=== PATIENT | female | born 1960 | race Caucasian/White ===

== ENCOUNTER 2021-07-12 10:20 | Emergency (ER) | payer OTHER ==
[~2021-07-12] VITALS: Ht 162.6 cm; Wt 61.2 kg
[2021-07-12] MEDS ORDERED: KEPPRA750 MG PO (10:33)
[2021-07-12 10:50] LABS: ABSOLUTE BASOPHILS 0.1 thou/uL (0.0-0.2); ABSOLUTE LYMPHOCYTES 1.4 thou/uL (0.8-5.3); ABSOLUTE MONOCYTES 0.5 thou/uL (0.0-1.2); ABSOLUTE NEUTROPHILS 3.1 thou/uL (1.6-8.1); BASOPHILS 1.1 %; EOSINOPHILS 0.8 %; HEMATOCRIT 40.5 % (37.0-47.0); HEMOGLOBIN 13.5 gm/dL (12.0-15.0); LYMPHOCYTES 27.4 %; MCH 29.4 pg (26.0-34.0); MCHC 33.4 g/dL (28.0-37.0); MCV 87.9 fL (80.0-100.0); MONOCYTES 9.7 %; MPV 8.7 fl. (7.2-11.1); NUCLEATED RBCS 0 /100WBC; PLATELET COUNT* 265 thou/uL (150-400); RBC 4.61 mil/uL (4.20-5.00); RDW-CV 14.1 % (10.5-14.5); WBC 5.1 thou/uL (4.0-11.0)
[2021-07-12 10:57] LABS: CREATININE 0.8 mg/dL (0.6-1.3); POTASSIUM 3.7 mmol/L (3.5-5.1)
[2021-07-12 11:08] LABS: ALBUMIN 3.9 g/dL (3.4-5.0); MAGNESIUM 2.1 mg/dL (1.8-2.4); TOTAL BILIRUBIN 0.4 mg/dL (<0.1-1.0); TOTAL PROTEIN 7.2 g/dL (6.4-8.2)
--- NOTE | 2021-07-12 12:30 | EKG ---
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
[2021-07-12 13:10] VITALS: BP 128/70
--- NOTE | 2021-07-13 17:44 | EKG ---
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
--- NOTE | 2021-07-14 06:49 | CON ---
[address] [address] CONSULTATION Name: JOCELYNE VALDEZ Room: [facility] [place]#: [id number] Admission: 07/12/21 Attend Phys: Discharge: 07/12/21 Date of : 64 Report #: [id number] THIS REPORT FOR: cc: Monse Claire Linda J. DO Liston, Michael J. MD [facility] ~ cc: Monse Claire DO DATE OF CONSULTATION: 07/12/2021 CARDIOLOGY CONSULT INDICATION: Chest pain. HISTORY OF PRESENT ILLNESS: The patient is a very pleasant 61-year-old female who presents to the emergency room with complaints of a single episode of midsternal chest discomfort that lasted for approximately 45-60 minutes. The patient describes the pain as being midsternal squeezing associated with some difficulty getting a full breath, radiating to the back. She had some mild diaphoresis with this. She had some mild nausea. The pain resolved spontaneously. The patient was given aspirin in the ambulance on the way to the emergency room. She did not receive nitroglycerin. EKG shows sinus rhythm with no significant ST-segment or T-wave abnormality. Initial troponin was less than 4. Her only risk factor is a family history of coronary artery disease. Her father had bypass in his 40s. Her LDL cholesterol was 124. She is not hypertensive. She is not diabetic. She does not have a smoking history. PAST MEDICAL HISTORY: Seizure disorder. CURRENT MEDICATIONS: Keppra 750 mg b.i.d. ALLERGIES: None documented. SOCIAL HISTORY: The patient is a nonsmoker. She does not drink alcohol. FAMILY HISTORY: Positive for premature atherosclerotic coronary artery disease as outlined above. REVIEW OF SYSTEMS: Fourteen-point review of systems positive only for midsternal chest discomfort with associated symptoms as outlined above. PHYSICAL EXAMINATION: VITAL SIGNS: Stable. Blood pressure 130/51, pulse is 67 and regular. GENERAL: This is a pleasant lady in no distress. Mood and affect appropriate. HEENT: The patient is wearing glasses. Extra[place] [address] CONSULTATION Name: JOCELYNE VALDEZ Room: [facility] [place]#: [id number] Admission: 07/12/21 Attend Phys: Discharge: 07/12/21 Date of : 64 Report #: [id number] membranes are moist. NECK: Shows no jugular venous distention. There are no carotid bruits. CHEST: Reveals clear lung lundy without wheezes or rales. CARDIAC: Reveals a regular rhythm. Normal S1 and S2. I do not appreciate gallop or murmur. ABDOMEN: Reveals normal bowel sounds. The abdomen is soft and nontender. EXTREMITIES: Shows no edema. Peripheral pulses palpable. SKIN: Warm and dry. DIAGNOSTIC DATA: A 12-lead EKG shows sinus rhythm with no acute ST- or T-wave abnormalities. Chest x-ray shows no acute cardiopulmonary abnormality. LABORATORY DATA: Reviewed. Initial high sensitivity troponin is less than 4. Labs are otherwise unremarkable. IMPRESSION AND RECOMMENDATIONS: 1. Chest discomfort. The patient has an unremarkable EKG. Initial troponin is unremarkable. If subsequent troponin in 2 hours is unremarkable, I believe she could be discharged and follow up for outpatient workup, which will be arranged. 2. Family history of premature atherosclerotic coronary artery disease as outlined above. 3. Seizure disorder, on Keppra chronically. PLAN: Discharge if second troponin is unremarkable. We will arrange outpatient followup. <ELECTRONICALLY SIGNED> By: Dung Brown MD, FACC 07/14/21 0649 1038 1112Miccindi Brown MD, FACC /nt
== END 2021-07-12 13:10 | disposition home or self-care (01) ==
LOC: M.ERS 10:20
PROVIDERS: Emergency Medicine Emergency Medical Services
DX: R07.89 Other chest pain (principal); R06.02 Shortness of breath; R00.2 Palpitations; R11.0 Nausea; R61 Generalized hyperhidrosis; G40.909 Epilepsy, unspecified, not intractable, without status epilepticus